=== PATIENT | male | born 1965 | race Two or more races ===

== ENCOUNTER 2017-04-20 07:09 | Day surgery (SDC) | payer BC ==
[~2017-04-20 07:09] MED LIST: Lactated Ringers 1,000 ML IV SCH; Lidocaine 1%/Sod Bicarbonate in NS 8.4% 1 ML Syringe IV PRN; Sodium Chloride 0.9% 10 ML Syringe FLUSH PRN
[2017-04-20] MEDS ORDERED: Propofol 200 MG/20 ML SDV ONE (07:36)
[2017-04-20] MEDS ORDERED: fentaNYL 100 MCG/2 ML SDV ONE (07:37)
[2017-04-20] MEDS ORDERED: Lidocaine 1% 4 ML ONE (07:38)
--- NOTE | 2017-04-20 07:56 | PCM.PREANE ---
Preanesthetic Assessment - Procedure Proposed Procedure: Diagnostic EGD - Anesthesia/Transfusion/Family Hx Anesthesia History: Prior Anesthesia Without Reaction Family History of Anesthesia Reaction: No Transfusion History: No Prior Transfusion(s) Intubation History: Unknown - Review of Systems General: No Symptoms Pulmonary: Other (Sleep apnea with CPAP, asthma (last used inhaler 3-4mo ago)) Cardiovascular: Other (HTN) Gastrointestinal: No Symptoms Neurological: No Symptoms Other: Reports: Diabetes - Physical Assessment NPO Status Date: 04/19/17 NPO Status Time: 19:30 O2 Sat by Pulse Oximetry: 95 Respiratory Rate: 16 Vital Signs: Last Vital Signs Temp 36.8 C 04/20/17 07:20 Pulse 61 04/20/17 07:20 Resp 16 04/20/17 07:20 BP 151/78 H 04/20/17 07:20 Pulse Ox 95 04/20/17 07:20 Height: 1.7 m Weight: 135.171 kg ASA Class: 2 Mental Status: Alert & Oriented x3 Airway Class: Mallampati = 3 Dentition: Reports: Normal Dentition Thyro-Mental Finger Breadths: 3 Mouth Opening Finger Breadths: 3 ROM/Head Extension: Full Lungs: Clear to Auscultation, Normal Respiratory Effort Cardiovascular: Regular Rate, Regular Rhythm - Lab Values: Laboratory Last Values POC Glucose 164 mg/dL (70-105) H 04/20/17 07:33 - Allergies Allergies/Adverse Reactions: Allergies Allergy/AdvReac Type Severity Reaction Status Date / Time No Known Allergies Allergy Verified 04/19/17 14:05 - Blood Blood Available: No Product(s) Available: None - Anesthesia Plan Pre-Op Medication Ordered: None - Acknowledgements Anesthesia Type Planned: MAC Pt an Appropriate Candidate for the Planned Anesthesia: Yes Alternatives and Risks of Anesthesia Discussed w Pt/Guardian: Yes Pt/Guardian Understands and Agrees with Anesthesia Plan: Yes PreAnesthesia Questionnaire HEENT History: Reports: Allergic Rhinitis, Impaired Vision, Other (See Below) Other HEENT History: glasses Cardiovascular History: Reports: High Cholesterol, Hypertension Respiratory History: Reports: Asthma, Sleep Apnea Gastrointestinal History: Reports: Chronic Constipation, PUD, Other (See Below) Other Gastrointestinal History: RUQ pain Genitourinary History: Reports: None BUSINESS CONSULTANT History: Reports: None Musculoskeletal History: Reports: Arthritis, Gout Other Musculoskeletal History: arthritis in knee Neurological History: Reports: None Psychiatric History: Reports: Depression Endocrine/Metabolic History: Reports: Diabetes, Type II, Obesity/BMI 30+ Hematologic History: Reports: None Immunologic History: Reports: None Oncologic (Cancer) History: Reports: None Dermatologic History: Reports: None - Past Surgical History Head Surgeries/Procedures: Reports: None HEENT Surgical History: Reports: Tonsillectomy Cardiovascular Surgical History: Reports: None Respiratory Surgical History: Reports: None GI Surgical History: Reports: None Female Surgical History: Reports: None Male Surgical History: Reports: None Endocrine Surgical History: Reports: None Neurological Surgical History: Reports: None Musculoskeletal Surgical History: Reports: None Oncologic Surgical History: Reports: None Dermatological Surgical History: Reports: None - SUBSTANCE USE Smoking Status *Q: Current Every Day Smoker (37 years 5cig/day) Tobacco Use Within Last Twelve Months: Cigarettes, Cigars Days Per Week of Alcohol Use: 2 Number of Drinks Per Day: 1 Total Drinks Per Week: 2 Recreational Drug Use History: No - HOME MEDS Home Medications: Home Meds Aspirin [Bobbi Chewable Aspirin] 81 mg PO DAILY 04/25/14 [History] Simvastatin [Zocor] 20 mg PO DAILY 04/25/14 [History] glipiZIDE [Glucotrol] 10 mg PO BID 04/25/14 [History] metFORMIN [Glucophage] 1,000 mg PO BID 04/25/14 [History] Multivitamin [Multi-Vitamin Daily] 1 tab PO DAILY 03/14/15 [History] Albuterol Sulfate [Proair Hfa] 2 puff INH Q6H 04/19/17 [History] Cetirizine [ZyrTEC] 10 mg PO DAILY PRN 04/19/17 [History] Fluticasone/Vilanterol [Breo Ellipta 100-25 MCG Inhalation Kit] 1 puff INH DAILY 04/19/17 [History] Gabapentin [Neurontin] 100 mg PO TID 04/19/17 [History] Hydrocodone/Acetaminophen [Hammond 5-325] 1 tab PO Q6H PRN 04/19/17 [History] Lisinopril [Lisinopril] 40 mg PO DAILY 04/19/17 [History] SitaGLIPtin [Januvia] 100 mg PO DAILY 04/19/17 [History] amLODIPine [Norvasc] 5 mg PO DAILY 04/19/17 [History] - CURRENT (IN HOUSE) MEDS Current Meds: Current Medications Lactated Ringer's (Ringers, Lactated) 1,000 mls @ 125 mls/hr IV ASDIRECTED SERGEY Lidocaine/Sodium Bicarbonate (Buffered Lidocaine 1% In Ns 8.4%) 0.25 ml IV ONETIME PRN PRN Reason: Prior to IV Start Sodium Chloride (Saline Flush) 10 ml FLUSH ASDIRECTED PRN PRN Reason: Keep Vein Open Discontinued Medications Fentanyl (Sublimaze) Confirm Administered Dose 100 mcg .ROUTE .STK-MED ONE Stop: 04/20/17 07:38 Lidocaine HCl (Xylocaine-Mpf 1%) Confirm Administered Dose 4 mls @ as directed .ROUTE .STK-MED ONE Stop: 04/20/17 07:39 Propofol (Diprivan 20 Ml) Confirm Administered Dose 200 mg .ROUTE .STK-MED ONE Stop: 04/20/17 07:37
--- NOTE | 2017-04-20 08:36 | PCM.OPNOTE ---
- General Post-Op/Procedure Note Date of Surgery/Procedure: 04/20/17 Operative Procedure(s): EGD with bx Pre Op Diagnosis: epigastic pain Post-Op Diagnosis: Same Anesthesia Technique: MAC Primary Surgeon: Adarsh Alonso EBL in mLs: 0 Complications: None Condition: Good
--- NOTE | 2017-04-20 08:43 | PCM48HPAN ---
Post Anesthesia Note - EVALUATION WITHIN 48HRS OF ANESTHETIC Vital Signs in Normal Range: Yes Patient Participated in Evaluation: Yes Respiratory Function Stable: Yes Airway Patent: Yes Cardiovascular Function Stable: Yes Hydration Status Stable: Yes Pain Control Satisfactory: Yes Nausea and Vomiting Control Satisfactory: Yes Mental Status Recovered: Yes
[2017-04-20 09:10] VITALS: BP 141/78
--- NOTE | 2017-04-20 12:22 | OR ---
DATE OF OPERATION: 04/20/2017 SURGEON: Adarsh Alonso MD PREOPERATIVE DIAGNOSIS: Epigastric pain. POSTOPERATIVE DIAGNOSIS: Epigastric pain. OPERATION PERFORMED: EGD with biopsy. FINDINGS: Normal second portion of the duodenum, duodenal bulb, and pyloric channel. Antrum, body, and cardia of the stomach and fundus did not show any pathology. GE junction was located at 42 cm and free of any acute process. There was no hiatal hernia and the rest of the esophagus was unremarkable. ANESTHESIA: Done under IV sedation. DESCRIPTION OF PROCEDURE: The patient was taken to the endoscopy room, placed in a supine position, connected to monitoring equipment, given IV sedation, and placed in the left lateral position. Bite block was inserted and video Olympus gastroscope placed in the posterior oropharynx, under direct vision, threaded past the cricopharyngeus, down the esophagus and into the stomach. The stomach was insufflated, and the scope was passed through the pylorus to the second portion of the duodenum. It was slowly withdrawn showing normal second portion of the duodenum, duodenal bulb, and pyloric channel. Antrum, body, cardia and fundus of the stomach were viewed. J-maneuver was done showing an intact hiatus. Antrum was biopsied looking for H. pylori. Scope was withdrawn to the GE junction, which was unremarkable, located at 42 cm. Rest of the esophagus viewed as the scope withdrawn was normal. The patient tolerated the procedure and was sent to recovery room in a stable condition. Specimen was sent to pathology in a labeled container. The patient will be followed up in the clinic. ESTIMATED BLOOD LOSS: MMODAL /[id number]
== END 2017-04-20 09:05 | disposition home or self-care (01) ==
LOC: JD.SDS 07:09
PROVIDERS: ATTEND Surgery
DX: K29.50 Unspecified chronic gastritis without bleeding (principal); I10 Essential (primary) hypertension; E11.9 Type 2 diabetes mellitus without complications; J45.909 Unspecified asthma, uncomplicated; F32.9 Major depressive disorder, single episode, unspecified; E78.5 Hyperlipidemia, unspecified; E66.9 Obesity, unspecified; G47.30 Sleep apnea, unspecified; Z79.82 Long term (current) use of aspirin; Z79.84 Long term (current) use of oral hypoglycemic drugs; Z79.899 Other long term (current) drug therapy; F17.210 Nicotine dependence, cigarettes, uncomplicated; Z98.890 Other specified postprocedural states; Z68.30 Body mass index [BMI] 30.0-30.9, adult
CPT/HCPCS: 43239; 82962; J3010; J7120; 00740; J2704